=== PATIENT | male | born 1990 | race Caucasian/White ===

== ENCOUNTER 2020-10-01 09:57 | Inpatient (IN) | payer OTHER ==
[~2020-10-01] VITALS: Ht 165.1 cm; Wt 61.2 kg
[~2020-10-01 09:57] MED LIST: FLEXERIL 10 MG10 MG PO; IBUPROFEN600 MG PO; NORCO 5-325 TA1 EACH PO; PREDNISONE 50 M50 MG PO; PREDNISONE20 MG PO
[2020-10-01 10:57] LABS: RED BLOOD COUNT 2.02 M/UL (4.20-5.50); WHITE BLOOD COUNT 5.6 K/UL (4.5-11.0)
[2020-10-01 11:14] LABS: HEMOGLOBIN 5.9 gm/dl (14.0-17.5)
[2020-10-01 11:52] LABS: BUN/CREATININE RATIO 34 (0-10)
[2020-10-01] MEDS ORDERED: IVIG IV (23:26)
[2020-10-02 05:31] LABS: RED BLOOD COUNT 1.87 M/UL (4.20-5.50)
[2020-10-02 05:51] LABS: BUN/CREATININE RATIO 30 (0-10)
[2020-10-02 05:54] LABS: HEMOGLOBIN 5.7 gm/dl (14.0-17.5); WHITE BLOOD COUNT 7.6 K/UL (4.5-11.0)
[2020-10-02 15:48] LABS: HEMOGLOBIN 6.4 gm/dl (14.0-17.5)
[2020-10-03 04:42] LABS: WHITE BLOOD COUNT 8.5 K/UL (4.5-11.0)
[2020-10-03 04:45] LABS: RED BLOOD COUNT 1.61 M/UL (4.20-5.50)
[2020-10-03 04:46] LABS: HEMOGLOBIN 4.5 gm/dl (14.0-17.5)
[2020-10-03 05:11] LABS: BUN/CREATININE RATIO 29 (0-10)
[2020-10-03 11:42] LABS: HEMOGLOBIN 6.2 gm/dl (14.0-17.5); RED BLOOD COUNT 2.07 M/UL (4.20-5.50); WHITE BLOOD COUNT 11.5 K/UL (4.5-11.0)
[2020-10-04 03:51] LABS: RED BLOOD COUNT 1.09 M/UL (4.20-5.50); WHITE BLOOD COUNT 12.9 K/UL (4.5-11.0)
[2020-10-04 03:52] LABS: HEMOGLOBIN 3.3 gm/dl (14.0-17.5)
[2020-10-04 04:39] LABS: BUN/CREATININE RATIO 37 (0-10)
--- NOTE | 2020-10-04 05:13 | NUR ---
0353-PATIENT FAMILY HOLLERED OUT AND SAID THEY NEEDED A NURSE IN THERE FAST, UPON ARRIVAL TO PATIENTS ROOM HE HAD A BLANK STARE, WASN'T RESPONDING TO ANY OF OUR QUESTIONS. THIS EPISODE LASTED ABOUT 10 MINUTES. ONCE PATIENT STARTED RESPONDING HE WAS VERY DISORIENTED AND HAD SOME NOTICIABLE FACIAL DROOP. DR RUSS WAS NOTIFIED. PATIENT WAS SENT FOR A STAT CT. VITALS WERE STABLE. FAMILY DECIDED THEY WANTED PATIENT TRANSFERRED TO . DR RUSS MADE AWARE WELL DR DAVIS. 7315-PATIENT BECAME VERY AGITATED TRYING TO GET OUT OF BED, HAD A BLANK STARE, WAS DISORIENTED. VITALS STABLE. CALMED PATIENT DOWN AND REORIENTED PATIENT. DR RUSS NOTIFIED. STATED HE WOULD COME BACK UP TO SEE PATIENT
--- NOTE | 2020-10-04 11:39 | NUR ---
CALLED [facility] FOR A STATUS UPDATE ON WHEN THE PATIENT CAN TRANSFER OUT. STATED THEY DO NOT HAVE A BED AT THE MOMENT AND WOULD FAZAL WHEN ONE OPENED UP.
[2020-10-04 14:19] LABS: HEMOGLOBIN 4.3 gm/dl (14.0-17.5)
[2020-10-04 14:34] LABS: BUN/CREATININE RATIO 42 (0-10)
[2020-10-04 15:02] LABS: CRYPTOCOCCUS NEOFORMANS/GATTII Not Detected (Negative); CYTOMEGALOVIRUS Not Detected (Negative); ENTEROVIRUS Not Detected (Negative); ESCHERICHIA COLI K1 Not Detected (Negative); HAEMOPHILUS INFLUENZAE Not Detected (Negative); HERPES SIMPLEX VIRUS 1 Not Detected (Negative); HERPES SIMPLEX VIRUS 2 Not Detected (Negative); HUMAN PARECHOVIRUS Not Detected (Negative); LISTERIA MONOCYTOGENES Not Detected (Negative); NEISERRIA MENINGITIDIS Not Detected (Negative); STREPTOCOCCUS AGALACTIAE Not Detected (Negative); STREPTOCOCCUS PNEUMONIAE Not Detected (Negative); VARICELLA ZOSTER VIRUS Not Detected (Negative)
[2020-10-04 15:51] LABS: WBC (AUTOMATED 10 10^3 (0-5)
[2020-10-04 15:52] LABS: WBC (AUTOMATED 8 10^3 (0-5)
[2020-10-04 16:07] LABS: GLUCOSE,CSF 99 mg/dL (50-80); TOTAL PROTEIN,CSF 30 mg/dL (20-45)
[2020-10-04 16:45] LABS: HUMAN HERPESVIRUS 6 DETECTED (Negative)
== END 2020-10-04 20:27 | disposition short-term general hospital (02) | DRG 808 ==
LOC: ER1 09:57 → CDU 14:10 → CCU 23:11
PROVIDERS: Internal Medicine Hematology & Oncology; Physician Assistant; Registered Nurse; Student in an Organized Health Care Education/Training Program; ADMIT Internal Medicine
PROC: 30233N1 Transfusion of Nonautologous Red Blood Cells into Peripheral Vein, Percutaneous Approach (ICD-10-PCS; 2020-10-01)
PROC: 30233N1 Transfusion of Nonautologous Red Blood Cells into Peripheral Vein, Percutaneous Approach (ICD-10-PCS; 2020-10-02)
PROC: 30233N1 Transfusion of Nonautologous Red Blood Cells into Peripheral Vein, Percutaneous Approach (ICD-10-PCS; 2020-10-03)
PROC: 009U3ZX Drainage of Spinal Canal, Percutaneous Approach, Diagnostic (ICD-10-PCS; principal; 2020-10-04)
PROC: 30233N1 Transfusion of Nonautologous Red Blood Cells into Peripheral Vein, Percutaneous Approach (ICD-10-PCS; 2020-10-04)
PROC: B01BYZZ Fluoroscopy of Spinal Cord using Other Contrast (ICD-10-PCS; 2020-10-04)
DX: D59.10 Autoimmune hemolytic anemia, unspecified (principal); R57.1 Hypovolemic shock; D81.9 Combined immunodeficiency, unspecified; D69.3 Immune thrombocytopenic purpura; E87.2 Acidosis; R17 Unspecified jaundice; G93.49 Other encephalopathy; Z87.891 Personal history of nicotine dependence; R50.9 Fever, unspecified; D69.6 Thrombocytopenia, unspecified; E80.6 Other disorders of bilirubin metabolism; R00.0 Tachycardia, unspecified; R16.1 Splenomegaly, not elsewhere classified; R09.02 Hypoxemia; I95.9 Hypotension, unspecified; Z88.2 Allergy status to sulfonamides; Z20.822 Contact with and (suspected) exposure to COVID-19
CPT/HCPCS: 36415; 36430; 36600; 70450; 71045; 76705; 80048; 80053; 80202; 80307; 81001; 82140; 82550; 82553; 82803; 82945; 82962; 83010; 83540; 83550; 83605; 83615; 83735; 83874; 84100; 84132; 84157; 84484; 84550; 85014; 85018; 85025; 85027; 85045; 85384; 85610; 85730; 86140; 86156; 86850; 86880; 86900; 86901; 86920; 86922; 87040; 87070; 87086; 87205; 87483; 89051; 93005; 96374; 96375; 99285; C9113; J0131; J0133; J0692; J1200; J1630; J2060; J2185; J2405; J2550; J2920; J2930; J3370; J7030; J7040; J7050; J7070; J9312; P9016; U0002

== ENCOUNTER → 2020-11-29 | Outpatient (CLI) | payer OTHER ==
[~2020-11-29] MED LIST changes: +IVIG IV
[2020-11-29 11:49] LABS: HEMOGLOBIN 11.8 gm/dl (14.0-17.5); RED BLOOD COUNT 3.91 M/UL (4.20-5.50)
[2020-11-29 12:21] LABS: BUN/CREATININE RATIO 9 (0-10)
[2020-11-30 09:13] LABS: THYROXINE (T4) 8.4 ug/dL (4.5-12.0)
== END ==
LOC: LAB 10:52
PROVIDERS: Nurse Practitioner
DX: L02.91 Cutaneous abscess, unspecified (principal); R53.82 Chronic fatigue, unspecified; D64.9 Anemia, unspecified
CPT/HCPCS: 36415; 80053; 80061; 81001; 84436; 84443; 84480; 85025

== ENCOUNTER → 2021-03-12 | Outpatient (CLI) | payer OTHER | LOC: RAD 08:52 | DX: D69.3 Immune thrombocytopenic purpura (principal) | CPT/HCPCS: 71046 ==

== ENCOUNTER → 2021-05-23 | Outpatient (CLI) | payer OTHER | LOC: LAB 09:46 | DX: E55.9 Vitamin D deficiency, unspecified (principal) | CPT/HCPCS: 36415 ==